=== PATIENT | male | born 1955 | race African-American/Black ===

== ENCOUNTER 2017-10-20 21:30 | Inpatient (IN) ==
[2017-10-20] MEDS ORDERED: METOPROLOL TARTRATE 5 MG/5 ML VIAL IV STA (22:51)
[2017-10-20 23:00] LABS: Basophils % 0.3 % (0.0-0.8); Hematocrit 44.1 VOL% (42.0-52.0); Hemoglobin 14.7 GM/DL (14.0-18.0); Immature Granulocytes % 0.2 %; Immature Granulocytes Absolute 0.02 #; Lymphocytes # 2.3 10*3/uL (1.4-4.0); Mean Corpuscular HGB Conc 33.3 GM/DL (32-36); Mean Corpuscular Hemoglobin 24 PG (27-34); Mean Corpuscular Volume 73.1 FL (87-102); Mean Platelet Volume 10.8 FL (9.6-12.0); Monocytes # 0.8 10*3/uL (0.11-0.8); Monocytes % 7.3 % (1.7-12.7); Neutrophils # 8.4 10*3/uL (1.4-7.4); Neutrophils % 72.2 % (38.7-73.9); Platelet Count 266 T/CUMM (130-400); Red Blood Count 6.03 MC/CUMM (3.8-5.5); Red Cell Distribution Width 19.6 % (9.3-17.3); White Blood Count 11.6 T/CUMM (4-12)
[2017-10-20 23:12] LABS: Albumin 3.3 G/DL (3.4-5.0); Bilirubin,Total 2.5 MG/DL (0.2-1.0); Calcium 9.2 MG/DL (8.5-10.1); Osmolality,Calculated 269.2 MOS/KG (273-304); Total Protein 7.7 G/DL (6.4-8.3)
[2017-10-20 23:31] LABS: VBG Base Excess -3.8 MEQ/L (0-4); VBG HCO3 20.7 MEQ/L (24-28); VBG Oxygen Saturation 69.4 %; VBG PCO2 48.6 MMHG (41-51); VBG PH 7.291; VBG PO2 46.2 MMHG (17-40)
[2017-10-20] MEDS ORDERED: METOPROLOL TARTRATE 5 MG/5 ML VIAL IV ONE (23:59)
[2017-10-21] MEDS ORDERED: FUROSEMIDE 40 MG/4 ML VIAL IV STA (00:19)
[2017-10-21] MEDS ORDERED: NITROGLYCERIN 2% OINT 1 INCH/GM PACK TOP STA (00:19)
[2017-10-21] MEDS ORDERED: ASPIRIN 325 MG TABLET PO STA (00:20)
[2017-10-21] MEDS ORDERED: METOPROLOL TARTRATE 5 MG/5 ML VIAL IV STA (00:22)
[2017-10-21] MEDS ORDERED: METOPROLOL TARTRATE 5 MG/5 ML VIAL IV ONE (00:33)
[2017-10-21] MEDS ORDERED: ASPIRIN 325 MG TABLET ONE (00:33)
[2017-10-21] MEDS ORDERED: NITROGLYCERIN 2% OINT 1 INCH/GM PACK TOP ONE (00:33)
[2017-10-21] MEDS ORDERED: FUROSEMIDE 40 MG/4 ML VIAL ONE (00:33)
[2017-10-21] MEDS ORDERED: DEXTROSE 50% 25 GM/50 ML VIAL IV PRN (02:59)
[2017-10-21] MEDS ORDERED: ONDANSETRON 4 MG/2 ML VIAL IV PRN (02:59)
[2017-10-21] MEDS ORDERED: ACETAMINOPHEN 325 MG TABLET PO PRN (02:59)
[2017-10-21] MEDS ORDERED: GLUCAGON 1 MG VIAL IM PRN (02:59)
[2017-10-21] MEDS ORDERED: ENOXAPARIN 30 MG/0.3 ML SYRINGE SUBCUT SCH (03:00)
[2017-10-21] MEDS ORDERED: ENOXAPARIN 40 MG/0.4 ML SYRINGE ONE (03:22)
[2017-10-21 03:36] LABS: Basophils % 0.3 % (0.0-0.8); Hematocrit 40.3 VOL% (42.0-52.0); Hemoglobin 13.4 GM/DL (14.0-18.0); Immature Granulocytes % 0.4 %; Immature Granulocytes Absolute 0.04 #; Lymphocytes # 1.6 10*3/uL (1.4-4.0); Lymphocytes % 15.5 % (21.2-54.2); Mean Corpuscular HGB Conc 33.3 GM/DL (32-36); Mean Corpuscular Hemoglobin 24 PG (27-34); Mean Corpuscular Volume 72.7 FL (87-102); Mean Platelet Volume 10.4 FL (9.6-12.0); Monocytes % 9.4 % (1.7-12.7); Neutrophils # 7.9 10*3/uL (1.4-7.4); Neutrophils % 74.4 % (38.7-73.9); Platelet Count 239 T/CUMM (130-400); Red Blood Count 5.54 MC/CUMM (3.8-5.5); Red Cell Distribution Width 18.9 % (9.3-17.3); White Blood Count 10.6 T/CUMM (4-12)
[2017-10-21 04:32] LABS: INR 2.7
[2017-10-21 04:41] LABS: PT Patient Result 27.7 SECS
[2017-10-21 05:00] LABS: Calcium 8.8 MG/DL (8.5-10.1); Magnesium 1.5 MG/DL (1.8-2.4); Osmolality,Calculated 267.4 MOS/KG (273-304); Potassium 5.2 MMOL/L (3.5-5.1); Risk Ratio 2.69; Thyroid Stimulating Hormone 3.81 uIU/ml (0.358-3.74); VLDL CHOLESTEROL 13.2 MG/DL
[2017-10-21] MEDS ORDERED: MAGNESIUM SULFATE 1 GM/2 ML VIAL IM ONE (05:07)
[2017-10-21] MEDS ORDERED: PANTOPRAZOLE 40 MG TABLET PO ONE (08:53)
[2017-10-21] MEDS ORDERED: FUROSEMIDE 40 MG TABLET ONE (08:53)
[2017-10-21] MEDS ORDERED: WARFARIN 5 MG TABLET ONE (08:53)
[2017-10-21] MEDS: PANTOPRAZOLE 40 MG TABLET PO SCH (09:00)
[2017-10-21] MEDS: ATORVASTATIN 40 MG TABLET PO SCH (09:00)
[2017-10-21] MEDS ORDERED: WARFARIN 10 MG TABLET PO SCH (09:00)
[2017-10-21] MEDS ORDERED: INSULIN ASPART PROTAMINE/ASPART 70/30 100 UNIT/ML SUBCUT ONE (09:27)
[2017-10-21] MEDS: METOPROLOL SUCCINATE XL 50 MG TABLET PO SCH (09:29)
[2017-10-21] MEDS ORDERED: FUROSEMIDE 40 MG TABLET PO ONE (09:33)
[2017-10-21] MEDS: FUROSEMIDE 40 MG/4 ML VIAL IV SCH ×2 (09:33→16:27)
[2017-10-21] MEDS: INSULIN ASPART PROTAMINE/ASPART 70/30 100 UNIT/ML SUBCUT SCH ×2 (09:40→17:09)
[2017-10-21] MEDS: INSULIN LISPRO 100 UNIT/ML SUBCUT SCH ×2 (13:41→16:42)
[2017-10-21] MEDS: FAMOTIDINE 20 MG TABLET PO SCH (20:56)
[2017-10-22] MEDS: INSULIN LISPRO 100 UNIT/ML SUBCUT SCH ×5 (00:27→20:03)
[2017-10-22 04:55] LABS: Basophils % 0.1 % (0.0-0.8); Eosinophils % 0.1 % (0.00-10.9); Hematocrit 36.2 VOL% (42.0-52.0); Hemoglobin 12.2 GM/DL (14.0-18.0); Immature Granulocytes % 0.2 %; Immature Granulocytes Absolute 0.02 #; Lymphocytes # 2.1 10*3/uL (1.4-4.0); Lymphocytes % 24.7 % (21.2-54.2); Mean Corpuscular HGB Conc 33.7 GM/DL (32-36); Mean Corpuscular Hemoglobin 24 PG (27-34); Mean Platelet Volume 10.2 FL (9.6-12.0); Monocytes # 0.6 10*3/uL (0.11-0.8); Neutrophils # 5.6 10*3/uL (1.4-7.4); Neutrophils % 67.9 % (38.7-73.9); Platelet Count 214 T/CUMM (130-400); Red Cell Distribution Width 18.2 % (9.3-17.3); White Blood Count 8.3 T/CUMM (4-12)
[2017-10-22 05:31] LABS: Calcium 8.5 MG/DL (8.5-10.1); Magnesium 1.8 MG/DL (1.8-2.4); Osmolality,Calculated 271.1 MOS/KG (273-304); Potassium 3.7 MMOL/L (3.5-5.1)
[2017-10-22] MEDS: INSULIN ASPART PROTAMINE/ASPART 70/30 100 UNIT/ML SUBCUT SCH ×2 (08:43→16:27)
[2017-10-22] MEDS: FUROSEMIDE 40 MG/4 ML VIAL IV SCH ×2 (08:43→16:26)
[2017-10-22] MEDS: METOPROLOL SUCCINATE XL 50 MG TABLET PO SCH ×2 (08:44→21:42)
[2017-10-22] MEDS: PANTOPRAZOLE 40 MG TABLET PO SCH (08:44)
[2017-10-22] MEDS: ATORVASTATIN 40 MG TABLET PO SCH (08:44)
[2017-10-22] MEDS ORDERED: MEPERIDINE 50 MG/1 ML VIAL IV ONE ×2 (16:55→17:00)
[2017-10-22] MEDS ORDERED: MIDAZOLAM 10 MG/2 ML VIAL IV ONE (16:57)
[2017-10-22] MEDS ORDERED: NALOXONE 0.4 MG/ML VIAL ONE (17:40)
[2017-10-22] MEDS ORDERED: FLUMAZENIL 0.5 MG/5 ML VIAL IV ONE (17:43)
[2017-10-22] MEDS ORDERED: WARFARIN 5 MG TABLET ONE (20:34)
[2017-10-22] MEDS: WARFARIN 10 MG TABLET PO SCH (21:42)
[2017-10-22] MEDS: FAMOTIDINE 20 MG TABLET PO SCH (21:42)
[2017-10-23 04:33] LABS: Basophils % 0.1 % (0.0-0.8); Eosinophils % 0.3 % (0.00-10.9); Hematocrit 36.5 VOL% (42.0-52.0); Hemoglobin 12.3 GM/DL (14.0-18.0); Immature Granulocytes % 0.3 %; Immature Granulocytes Absolute 0.02 #; Lymphocytes # 1.5 10*3/uL (1.4-4.0); Lymphocytes % 21.3 % (21.2-54.2); Mean Corpuscular HGB Conc 33.7 GM/DL (32-36); Mean Corpuscular Hemoglobin 25 PG (27-34); Mean Corpuscular Volume 72.7 FL (87-102); Mean Platelet Volume 10.8 FL (9.6-12.0); Monocytes # 0.6 10*3/uL (0.11-0.8); Monocytes % 8.5 % (1.7-12.7); Neutrophils # 4.9 10*3/uL (1.4-7.4); Neutrophils % 69.5 % (38.7-73.9); Platelet Count 233 T/CUMM (130-400); Red Blood Count 5.02 MC/CUMM (3.8-5.5); Red Cell Distribution Width 18.1 % (9.3-17.3); White Blood Count 7.1 T/CUMM (4-12)
[2017-10-23 04:50] LABS: INR 4.4
[2017-10-23 04:51] LABS: PT Patient Result 44.2 SECS
[2017-10-23 05:37] LABS: Calcium 7.9 MG/DL (8.5-10.1); Magnesium 1.6 MG/DL (1.8-2.4); Osmolality,Calculated 270.4 MOS/KG (273-304); Potassium 3.9 MMOL/L (3.5-5.1)
[2017-10-23] MEDS: INSULIN LISPRO 100 UNIT/ML SUBCUT SCH ×4 (08:51→20:11)
[2017-10-23] MEDS: PANTOPRAZOLE 40 MG TABLET PO SCH (08:52)
[2017-10-23] MEDS: METOPROLOL SUCCINATE XL 50 MG TABLET PO SCH ×2 (08:52→21:20)
[2017-10-23] MEDS: ATORVASTATIN 40 MG TABLET PO SCH (08:52)
[2017-10-23] MEDS: FUROSEMIDE 40 MG/4 ML VIAL IV SCH ×2 (08:52→15:31)
[2017-10-23] MEDS: INSULIN ASPART PROTAMINE/ASPART 70/30 100 UNIT/ML SUBCUT SCH ×2 (08:52→15:31)
[2017-10-23] MEDS ORDERED: ALBUTEROL 0.63 MG/3 ML NEB RESP TX PRN (10:13)
[2017-10-23] MEDS: LISINOPRIL 5 MG TABLET PO SCH ×2 (11:58→21:19)
[2017-10-23] MEDS ORDERED: WARFARIN 5 MG TABLET ONE (16:12)
[2017-10-23] MEDS: WARFARIN 10 MG TABLET PO SCH (17:00)
[2017-10-23] MEDS ORDERED: FLUMAZENIL 1 MG/10 ML VIAL IV ONE (19:01)
[2017-10-23] MEDS ORDERED: NALOXONE 0.4 MG/ML VIAL IV ONE (19:01)
[2017-10-23] MEDS ORDERED: FLUMAZENIL 0.5 MG/5 ML VIAL IV ONE (19:30)
[2017-10-23] MEDS: FAMOTIDINE 20 MG TABLET PO SCH (21:19)
[2017-10-24 06:00] LABS: Basophils % 0.4 % (0.0-0.8); Eosinophils # 0.1 10*3/uL (0.0-0.87); Eosinophils % 0.9 % (0.00-10.9); Hematocrit 35.2 VOL% (42.0-52.0); Lymphocytes % 34.7 % (21.2-54.2); Mean Corpuscular HGB Conc 34.1 GM/DL (32-36); Mean Corpuscular Hemoglobin 24 PG (27-34); Mean Corpuscular Volume 70.8 FL (87-102); Mean Platelet Volume 10.6 FL (9.6-12.0); Monocytes # 0.6 10*3/uL (0.11-0.8); Monocytes % 10.3 % (1.7-12.7); Neutrophils % 53.7 % (38.7-73.9); Platelet Count 240 T/CUMM (130-400); Red Blood Count 4.97 MC/CUMM (3.8-5.5); Red Cell Distribution Width 17.9 % (9.3-17.3); White Blood Count 5.6 T/CUMM (4-12)
[2017-10-24 06:14] LABS: PT Patient Result 63.1 SECS
[2017-10-24 06:15] LABS: INR 6.4
[2017-10-24 06:31] LABS: Calcium 8.1 MG/DL (8.5-10.1); Magnesium 1.8 MG/DL (1.8-2.4); Osmolality,Calculated 271.1 MOS/KG (273-304); Potassium 3.5 MMOL/L (3.5-5.1)
[2017-10-24] MEDS: INSULIN LISPRO 100 UNIT/ML SUBCUT SCH ×4 (09:00→20:57)
[2017-10-24] MEDS: METOPROLOL SUCCINATE XL 50 MG TABLET PO SCH ×2 (09:00→20:57)
[2017-10-24] MEDS: INSULIN ASPART PROTAMINE/ASPART 70/30 100 UNIT/ML SUBCUT SCH ×2 (09:00→17:06)
[2017-10-24] MEDS: LISINOPRIL 5 MG TABLET PO SCH ×2 (09:00→20:56)
[2017-10-24] MEDS: ATORVASTATIN 40 MG TABLET PO SCH (09:00)
[2017-10-24] MEDS: PANTOPRAZOLE 40 MG TABLET PO SCH (09:01)
[2017-10-24] MEDS: FUROSEMIDE 40 MG/4 ML VIAL IV SCH ×2 (09:01→17:19)
[2017-10-24] MEDS: FAMOTIDINE 20 MG TABLET PO SCH (20:36)
[2017-10-25 05:46] LABS: Basophils % 0.5 % (0.0-0.8); Eosinophils # 0.1 10*3/uL (0.0-0.87); Eosinophils % 1.1 % (0.00-10.9); Hematocrit 36.1 VOL% (42.0-52.0); Hemoglobin 12.2 GM/DL (14.0-18.0); Immature Granulocytes % 0.2 %; Immature Granulocytes Absolute 0.01 #; Lymphocytes # 1.5 10*3/uL (1.4-4.0); Lymphocytes % 26.5 % (21.2-54.2); Mean Corpuscular HGB Conc 33.8 GM/DL (32-36); Mean Corpuscular Hemoglobin 24 PG (27-34); Mean Corpuscular Volume 71.8 FL (87-102); Mean Platelet Volume 10.6 FL (9.6-12.0); Monocytes # 0.5 10*3/uL (0.11-0.8); Monocytes % 8.7 % (1.7-12.7); Neutrophils # 3.5 10*3/uL (1.4-7.4); Platelet Count 275 T/CUMM (130-400); Red Blood Count 5.03 MC/CUMM (3.8-5.5); Red Cell Distribution Width 18.3 % (9.3-17.3); White Blood Count 5.6 T/CUMM (4-12)
[2017-10-25 06:05] LABS: PT Patient Result 58.5 SECS
[2017-10-25 06:06] LABS: INR 5.9
[2017-10-25 07:08] LABS: Calcium 8.3 MG/DL (8.5-10.1); Magnesium 1.8 MG/DL (1.8-2.4); Osmolality,Calculated 277.1 MOS/KG (273-304)
[2017-10-25] MEDS: INSULIN LISPRO 100 UNIT/ML SUBCUT SCH ×4 (08:43→20:28)
[2017-10-25] MEDS: LISINOPRIL 5 MG TABLET PO SCH ×2 (08:43→20:29)
[2017-10-25] MEDS: METOPROLOL SUCCINATE XL 50 MG TABLET PO SCH ×2 (08:44→20:29)
[2017-10-25] MEDS: FUROSEMIDE 40 MG/4 ML VIAL IV SCH ×2 (08:44→16:26)
[2017-10-25] MEDS: ATORVASTATIN 40 MG TABLET PO SCH (08:44)
[2017-10-25] MEDS: PANTOPRAZOLE 40 MG TABLET PO SCH (08:44)
[2017-10-25] MEDS: INSULIN ASPART PROTAMINE/ASPART 70/30 100 UNIT/ML SUBCUT SCH (16:36)
[2017-10-25] MEDS: FAMOTIDINE 20 MG TABLET PO SCH (20:29)
[2017-10-26 03:57] LABS: Basophils % 0.3 % (0.0-0.8); Eosinophils # 0.1 10*3/uL (0.0-0.87); Eosinophils % 1.6 % (0.00-10.9); Hematocrit 37.2 VOL% (42.0-52.0); Hemoglobin 12.3 GM/DL (14.0-18.0); Lymphocytes # 1.7 10*3/uL (1.4-4.0); Lymphocytes % 27.6 % (21.2-54.2); Mean Corpuscular HGB Conc 33.1 GM/DL (32-36); Mean Corpuscular Hemoglobin 24 PG (27-34); Mean Corpuscular Volume 72.7 FL (87-102); Mean Platelet Volume 10.4 FL (9.6-12.0); Monocytes # 0.7 10*3/uL (0.11-0.8); Monocytes % 10.5 % (1.7-12.7); Neutrophils # 3.7 10*3/uL (1.4-7.4); Platelet Count 292 T/CUMM (130-400); Red Blood Count 5.12 MC/CUMM (3.8-5.5); Red Cell Distribution Width 18.7 % (9.3-17.3); White Blood Count 6.2 T/CUMM (4-12)
[2017-10-26 04:30] LABS: Calcium 8.2 MG/DL (8.5-10.1); Osmolality,Calculated 275.8 MOS/KG (273-304); Potassium 3.7 MMOL/L (3.5-5.1)
[2017-10-26 04:56] LABS: INR 4.6
[2017-10-26 05:24] LABS: PT Patient Result 46.1 SECS
[2017-10-26] MEDS: INSULIN LISPRO 100 UNIT/ML SUBCUT SCH ×4 (08:05→21:16)
[2017-10-26] MEDS: PANTOPRAZOLE 40 MG TABLET PO SCH (08:18)
[2017-10-26] MEDS: FUROSEMIDE 40 MG/4 ML VIAL IV SCH (08:18)
[2017-10-26] MEDS: ATORVASTATIN 40 MG TABLET PO SCH (08:18)
[2017-10-26] MEDS: METOPROLOL SUCCINATE XL 50 MG TABLET PO SCH ×2 (08:18→21:12)
[2017-10-26] MEDS: LISINOPRIL 5 MG TABLET PO SCH ×2 (08:18→21:12)
[2017-10-26] MEDS: FUROSEMIDE 40 MG TABLET PO SCH (16:52)
[2017-10-26] MEDS: INSULIN ASPART PROTAMINE/ASPART 70/30 100 UNIT/ML SUBCUT SCH (16:57)
[2017-10-26] MEDS: FAMOTIDINE 20 MG TABLET PO SCH (21:12)
[2017-10-27 05:23] LABS: Basophils % 0.3 % (0.0-0.8); Eosinophils # 0.2 10*3/uL (0.0-0.87); Eosinophils % 2.8 % (0.00-10.9); Hematocrit 38.1 VOL% (42.0-52.0); Hemoglobin 12.6 GM/DL (14.0-18.0); Immature Granulocytes % 0.2 %; Immature Granulocytes Absolute 0.01 #; Lymphocytes % 32.3 % (21.2-54.2); Mean Corpuscular HGB Conc 33.1 GM/DL (32-36); Mean Corpuscular Hemoglobin 24 PG (27-34); Mean Corpuscular Volume 71.9 FL (87-102); Monocytes # 0.5 10*3/uL (0.11-0.8); Monocytes % 8.3 % (1.7-12.7); Neutrophils # 3.5 10*3/uL (1.4-7.4); Neutrophils % 56.1 % (38.7-73.9); Platelet Count 336 T/CUMM (130-400); Red Cell Distribution Width 19.4 % (9.3-17.3); White Blood Count 6.2 T/CUMM (4-12)
[2017-10-27 05:31] LABS: INR 2.7
[2017-10-27 05:49] LABS: PT Patient Result 27.4 SECS
[2017-10-27 05:56] LABS: Calcium 8.4 MG/DL (8.5-10.1); Osmolality,Calculated 274.7 MOS/KG (273-304); Potassium 3.8 MMOL/L (3.5-5.1)
[2017-10-27] MEDS: INSULIN LISPRO 100 UNIT/ML SUBCUT SCH ×2 (08:37→14:56)
[2017-10-27] MEDS: PANTOPRAZOLE 40 MG TABLET PO SCH (09:07)
[2017-10-27] MEDS: FUROSEMIDE 40 MG TABLET PO SCH (09:07)
[2017-10-27] MEDS: METOPROLOL SUCCINATE XL 50 MG TABLET PO SCH (09:07)
[2017-10-27] MEDS: LISINOPRIL 5 MG TABLET PO SCH (09:07)
[2017-10-27] MEDS: ATORVASTATIN 40 MG TABLET PO SCH (09:08)
[2017-10-27 13:13] VITALS: BP 112/82
== END 2017-10-27 15:21 | disposition home or self-care (01) | DRG 309 ==
LOC: N.ED 21:30 → SUATTDRO 10-21 02:58 → N.EDINP 10-21 02:58 → N.TELEN 10-21 13:12
PROVIDERS: ADMIT Internal Medicine; ATTEND Internal Medicine

== ENCOUNTER 2020-12-01 17:31 | Inpatient (IN) ==
[2020-12-01] MEDS ORDERED: ONDANSETRON 4 MG/2 ML VIAL IV ONE (20:34)
[2020-12-01] MEDS ORDERED: ASPIRIN 325 MG TABLET PO STA (20:34)
[2020-12-01 21:00] LABS: Basophils % 0.2 % (0.0-0.8); Eosinophils # 0.1 10*3/uL (0.0-0.87); Hematocrit 42.9 VOL% (42.0-52.0); Hemoglobin 13.3 GM/DL (14.0-18.0); Immature Granulocytes % 0.5 %; Immature Granulocytes Absolute 0.06 #; Lymphocytes # 1.2 10*3/uL (1.4-4.0); Lymphocytes % 10.7 % (21.2-54.2); Mean Corpuscular Volume 84.3 FL (87-102); Mean Platelet Volume 10.9 FL (9.6-12.0); Monocytes % 10.5 % (1.7-12.7); Neutrophils % 77.1 % (38.7-73.9); Platelet Count 326 T/CUMM (130-400); Red Blood Count 5.09 MC/CUMM (3.8-5.5); Red Cell Distribution Width 16.2 % (9.3-17.3); White Blood Count 11.1 T/CUMM (4-12)
[2020-12-01] MEDS ORDERED: INSULIN REGULAR 100 UNIT/ML IV STA (21:18)
[2020-12-01 21:20] LABS: Eosinophils 1 % (0-10); Lymphocytes 11 % (20-55); Platelet Estimate Adequate; Segmented Neutrophils 74 % (50-85); Total Cells Counted 100
[2020-12-01 21:20] LABS: INR 1.1; PT Patient Result 12.1 SECS (9.8-11.9)
[2020-12-01 21:21] LABS: Anisocytosis Slight; Polychromasia Few
[2020-12-01 21:31] LABS: Bilirubin,Urine Negative (Negative); Blood, Urine Small mg/dL (Negative); Glucose,Urine (UA) >=500 mg/dL (Negative); Ketones,Urine Negative (Negative); Nitrite,Urine Negative (Negative); Protein,Urine 100 MG/DL; RBC,Urine 2 /HPF (0-4); Squamous Epithelial Cell,Urine Occasional /HPF (0-10); Urine Appearance CLEAR (Clear); Urine Color Yellow (Yellow); Urine Specific Gravity 1.018 (1.001-1.035); WBC,Urine 1 /HPF (0-6)
[2020-12-01 21:34] LABS: Albumin 3.2 G/DL (3.4-5.0); Bilirubin,Total 1.3 MG/DL (0.2-1.0); Total Protein 8.7 G/DL (6.4-8.3)
[2020-12-01 21:35] LABS: Troponin I < 0.015 NG/ML (0.00-0.045)
[2020-12-01] MEDS ORDERED: LABETALOL 20 MG/4 ML SYRINGE IV STA (21:52)
[2020-12-01] MEDS ORDERED: ZALEPLON 5 MG CAPSULE PO PRN (22:15)
[2020-12-01] MEDS ORDERED: GLUCAGON 1 MG VIAL IM PRN ×2 (22:15)
[2020-12-01] MEDS ORDERED: DEXTROSE 50% 25 GM/50 ML VIAL IV PRN ×2 (22:15)
[2020-12-01] MEDS ORDERED: MAGNESIUM SULF RIDER 2 GM in PREMIX 1 EACH IV PRN (22:15)
[2020-12-01] MEDS ORDERED: MAGNESIUM SULF RIDER 4 GM in PREMIX 1 EACH IV PRN (22:15)
[2020-12-01] MEDS ORDERED: ACETAMINOPHEN 325 MG TABLET PO PRN (22:15)
[2020-12-01] MEDS ORDERED: DOCUSATE SODIUM 100 MG CAPSULE PO PRN (22:15)
[2020-12-01] MEDS ORDERED: ONDANSETRON 4 MG/2 ML VIAL IV PRN (22:15)
[2020-12-01] MEDS ORDERED: DEXTROSE 50% 25 GM/50 ML SYRINGE IV PRN (22:35)
[2020-12-02] MEDS: METOPROLOL SUCCINATE XL 25 MG TABLET PO SCH ×3 (02:18→21:48)
[2020-12-02] MEDS: AMIODARONE 200 MG TABLET PO SCH ×3 (02:18→21:48)
[2020-12-02] MEDS: carvediloL 12.5 MG TABLET PO SCH ×2 (02:18→07:48)
[2020-12-02 07:14] LABS: Basophils % 0.2 % (0.0-0.8); Eosinophils # 0.1 10*3/uL (0.0-0.87); Eosinophils % 0.9 % (0.00-10.9); Hematocrit 34.4 VOL% (42.0-52.0); Hemoglobin 10.7 GM/DL (14.0-18.0); Immature Granulocytes % 0.3 %; Immature Granulocytes Absolute 0.03 #; Lymphocytes # 1.2 10*3/uL (1.4-4.0); Lymphocytes % 11.8 % (21.2-54.2); Mean Corpuscular HGB Conc 31.1 GM/DL (32-36); Mean Corpuscular Volume 83.9 FL (87-102); Mean Platelet Volume 11.1 FL (9.6-12.0); Monocytes % 10.4 % (1.7-12.7); Neutrophils % 76.4 % (38.7-73.9); Platelet Count 298 T/CUMM (130-400); Red Cell Distribution Width 16.1 % (9.3-17.3); White Blood Count 10.3 T/CUMM (4-12)
[2020-12-02 07:30] LABS: Alanine Aminotransferase 17 U/L (16-61); Albumin 2.4 G/DL (3.4-5.0); Alkaline Phosphatase 89 U/L (45-117); Aspartate Amino Transferase 14 U/L (0-37); Blood Urea Nitrogen 15 MG/DL (7-18); Calcium 8.2 MG/DL (8.5-10.1); Estimated Glom Filtration Rate 83 ML/MIN; Glucose 336 MG/DL (74-106); Osmolality,Calculated 286.8 MOS/KG (273-304); Total Protein 7.1 G/DL (6.4-8.3); Troponin I < 0.015 NG/ML (0.00-0.045)
[2020-12-02] MEDS: INSULIN REGULAR 100 UNIT/ML SUBCUT SCH ×4 (07:49→21:49)
[2020-12-02] MEDS: FUROSEMIDE 40 MG/4 ML VIAL IV SCH ×2 (07:49→15:46)
[2020-12-02 08:20] LABS: Troponin I < 0.015 NG/ML (0.00-0.045)
[2020-12-02] MEDS: lisinopriL 20 MG TABLET PO SCH (08:27)
[2020-12-02] MEDS: MAGNESIUM CHLORIDE 64 MG TABLET PO SCH ×3 (08:27→21:48)
[2020-12-02] MEDS: metOLazone 2.5 MG TABLET PO SCH (08:27)
[2020-12-02] MEDS: PANTOPRAZOLE 40 MG TABLET PO SCH (08:27)
[2020-12-02] MEDS ORDERED: APIXABAN 5 MG TABLET PO SCH (09:00)
[2020-12-02 09:12] LABS: Troponin I < 0.015 NG/ML (0.00-0.045)
[2020-12-02] MEDS: SACUBITRIL/VALSARTAN 49-51 MG TABLET PO SCH ×2 (12:09→21:48)
[2020-12-02] MEDS: ATORVASTATIN 40 MG TABLET PO SCH (18:08)
[2020-12-02] MEDS: APIXABAN 5 MG TABLET PO SCH (21:48)
[2020-12-03 06:50] LABS: Basophils % 0.3 % (0.0-0.8); Eosinophils # 0.1 10*3/uL (0.0-0.87); Eosinophils % 1.2 % (0.00-10.9); Hematocrit 34.1 VOL% (42.0-52.0); Hemoglobin 10.5 GM/DL (14.0-18.0); Immature Granulocytes % 0.4 %; Immature Granulocytes Absolute 0.04 #; Lymphocytes # 1.6 10*3/uL (1.4-4.0); Lymphocytes % 17.5 % (21.2-54.2); Mean Corpuscular HGB Conc 30.8 GM/DL (32-36); Mean Corpuscular Volume 83.4 FL (87-102); Mean Platelet Volume 10.7 FL (9.6-12.0); Monocytes % 11.7 % (1.7-12.7); Neutrophils % 68.9 % (38.7-73.9); Platelet Count 279 T/CUMM (130-400); Red Blood Count 4.09 MC/CUMM (3.8-5.5); Red Cell Distribution Width 15.8 % (9.3-17.3); White Blood Count 9.2 T/CUMM (4-12)
[2020-12-03 06:57] LABS: Calcium 8.1 MG/DL (8.5-10.1); Osmolality,Calculated 271.2 MOS/KG (273-304)
[2020-12-03] MEDS: SACUBITRIL/VALSARTAN 49-51 MG TABLET PO SCH ×2 (08:29→22:00)
[2020-12-03] MEDS: INSULIN REGULAR 100 UNIT/ML SUBCUT SCH ×4 (08:29→22:01)
[2020-12-03] MEDS: metOLazone 2.5 MG TABLET PO SCH (08:30)
[2020-12-03] MEDS: AMIODARONE 200 MG TABLET PO SCH ×2 (08:30→21:59)
[2020-12-03] MEDS: lisinopriL 20 MG TABLET PO SCH (08:30)
[2020-12-03] MEDS: METOPROLOL SUCCINATE XL 25 MG TABLET PO SCH ×2 (08:30→22:00)
[2020-12-03] MEDS: PANTOPRAZOLE 40 MG TABLET PO SCH (08:30)
[2020-12-03] MEDS: MAGNESIUM CHLORIDE 64 MG TABLET PO SCH ×3 (08:30→22:00)
[2020-12-03] MEDS: FUROSEMIDE 40 MG/4 ML VIAL IV SCH ×2 (08:30→17:34)
[2020-12-03] MEDS: APIXABAN 5 MG TABLET PO SCH ×2 (08:30→22:00)
[2020-12-03] MEDS: POTASSIUM CHLORIDE 20 MEQ TABLET PO PRN ×4 (10:03→17:33)
[2020-12-03] MEDS: ATORVASTATIN 40 MG TABLET PO SCH (18:04)
[2020-12-04] MEDS: POTASSIUM CHLORIDE 20 MEQ TABLET PO PRN ×4 (00:20→08:02)
[2020-12-04 05:24] LABS: Basophils % 0.2 % (0.0-0.8); Eosinophils # 0.2 10*3/uL (0.0-0.87); Eosinophils % 2.5 % (0.00-10.9); Hematocrit 34.3 VOL% (42.0-52.0); Hemoglobin 10.9 GM/DL (14.0-18.0); Immature Granulocytes % 0.2 %; Immature Granulocytes Absolute 0.02 #; Lymphocytes # 1.5 10*3/uL (1.4-4.0); Lymphocytes % 18.1 % (21.2-54.2); Mean Corpuscular HGB Conc 31.8 GM/DL (32-36); Mean Corpuscular Volume 83.7 FL (87-102); Mean Platelet Volume 10.6 FL (9.6-12.0); Monocytes % 10.1 % (1.7-12.7); Neutrophils % 68.9 % (38.7-73.9); Platelet Count 313 T/CUMM (130-400); Red Cell Distribution Width 15.6 % (9.3-17.3); White Blood Count 8.4 T/CUMM (4-12)
[2020-12-04 05:44] LABS: Calcium 8.1 MG/DL (8.5-10.1); Osmolality,Calculated 277.4 MOS/KG (273-304)
[2020-12-04] MEDS: metOLazone 2.5 MG TABLET PO SCH (08:02)
[2020-12-04] MEDS: INSULIN REGULAR 100 UNIT/ML SUBCUT SCH ×3 (08:07→18:34)
[2020-12-04] MEDS: lisinopriL 20 MG TABLET PO SCH (09:26)
[2020-12-04] MEDS: MAGNESIUM CHLORIDE 64 MG TABLET PO SCH ×2 (09:26→15:28)
[2020-12-04] MEDS: AMIODARONE 200 MG TABLET PO SCH (09:26)
[2020-12-04] MEDS: PANTOPRAZOLE 40 MG TABLET PO SCH (09:26)
[2020-12-04] MEDS: SACUBITRIL/VALSARTAN 49-51 MG TABLET PO SCH (09:26)
[2020-12-04] MEDS: METOPROLOL SUCCINATE XL 25 MG TABLET PO SCH (09:26)
[2020-12-04] MEDS: FUROSEMIDE 40 MG/4 ML VIAL IV SCH (09:27)
[2020-12-04] MEDS: APIXABAN 5 MG TABLET PO SCH (09:27)
[2020-12-04] MEDS ORDERED: POTASSIUM CHLORIDE 20 MEQ TABLET PO SCH (09:44)
[2020-12-04] MEDS ORDERED: GLIMEPIRIDE 2 MG TABLET PO SCH (10:00)
[2020-12-04] MEDS ORDERED: ASPIRIN CHEW 81 MG TABLET PO SCH (10:30)
[2020-12-04] MEDS ORDERED: MAGNESIUM SULF RIDER 2 GM in PREMIX 1 EACH IV ONE (10:58)
[2020-12-04] MEDS ORDERED: INFLUENZA VIRUS VACCINE 0.5 ML SYRINGE IM ONE (14:17)
[2020-12-04] MEDS ORDERED: FUROSEMIDE 40 MG TABLET PO SCH (16:00)
[2020-12-04 16:08] VITALS: BP 121/76
== END 2020-12-04 20:16 | disposition home or self-care (01) | DRG 291 ==
LOC: N.EDINP 17:31 → N.ED 17:31 → SUATTDRO 22:39 → N.EDINP 12-02 01:09 → N.TELEN 12-02 01:30 → SUATTDRO 12-03 13:22
PROVIDERS: ADMIT Family Medicine; ATTEND Internal Medicine

== ENCOUNTER 2021-04-24 16:21 | Observation (INO) ==
[2021-04-24] MEDS ORDERED: methylPREDNISolone SOD SUC 125 MG/2 ML VIAL IV STA (18:20)
[2021-04-24] MEDS ORDERED: ONDANSETRON 4 MG/2 ML VIAL IV STA (18:20)
[2021-04-24] MEDS ORDERED: FUROSEMIDE 100 MG/10 ML VIAL IV STA (18:20)
[2021-04-24] MEDS ORDERED: ALBUTEROL/IPRATROPIUM 3 ML NEB RESP TX STA (18:20)
[2021-04-24] MEDS ORDERED: MORPHINE 4 MG/1 ML VIAL IV STA (18:20)
[2021-04-24] MEDS ORDERED: ASPIRIN 325 MG TABLET PO STA (18:20)
[2021-04-24 18:35] LABS: Basophils % 0.5 % (0.0-0.8); Eosinophils # 1.1 10*3/uL (0.0-0.87); Eosinophils % 17.4 % (0.00-10.9); Hematocrit 35.9 VOL% (42.0-52.0); Hemoglobin 11.1 GM/DL (14.0-18.0); Immature Granulocytes % 0.2 %; Immature Granulocytes Absolute 0.01 #; Lymphocytes # 1.3 10*3/uL (1.4-4.0); Lymphocytes % 19.9 % (21.2-54.2); Mean Corpuscular HGB Conc 30.9 GM/DL (32-36); Mean Corpuscular Volume 87.8 FL (87-102); Mean Platelet Volume 11.4 FL (9.6-12.0); Monocytes % 9.5 % (1.7-12.7); Neutrophils % 52.5 % (38.7-73.9); Platelet Count 232 T/CUMM (130-400); Red Blood Count 4.09 MC/CUMM (3.8-5.5); Red Cell Distribution Width 17.1 % (9.3-17.3); White Blood Count 6.4 T/CUMM (4-12)
[2021-04-24 18:41] LABS: INR 1.2; PT Patient Result 12.7 SECS (10.5-12.0)
[2021-04-24 18:45] LABS: Albumin 3.1 G/DL (3.4-5.0); Bilirubin,Total 0.9 MG/DL (0.2-1.0); Calcium 8.1 MG/DL (8.5-10.1); Osmolality,Calculated 279.5 MOS/KG (273-304); Potassium 3.7 MMOL/L (3.5-5.1); Total Protein 7.7 G/DL (6.4-8.2)
[2021-04-24 19:44] LABS: Anisocytosis 1+; Eosinophils 17 % (0-10); Hypochromasia 1+; Lymphocytes 19 % (20-55); Ovalocytes 1+; Segmented Neutrophils 55 % (50-85); Total Cells Counted 100
[2021-04-24 19:45] LABS: Platelet Estimate Normal; Schistocytes Few
[2021-04-24] MEDS ORDERED: GLUCAGON 1 MG VIAL IM PRN (20:41)
[2021-04-24] MEDS ORDERED: DEXTROSE 50% 25 GM/50 ML VIAL IV PRN (20:41)
[2021-04-24] MEDS ORDERED: ALBUTEROL/IPRATROPIUM 3 ML NEB RESP TX PRN (20:42)
[2021-04-24] MEDS ORDERED: ENOXAPARIN 40 MG/0.4 ML SYRINGE SUBCUT SCH (21:00)
[2021-04-24 21:26] LABS: Bilirubin,Urine Negative (Negative); Blood, Urine Small mg/dL (Negative); Glucose,Urine (UA) Negative (Negative); Hyaline Casts,Urine 1 /LPF (0-3); Ketones,Urine Negative (Negative); Mucus,Urine Occasional /LPF (Occasional); Nitrite,Urine Negative (Negative); Protein,Urine 30 MG/DL; RBC,Urine 1 /HPF (0-4); Urine Appearance CLEAR (Clear); Urine Color Straw (Yellow); Urine Specific Gravity 1.006 (1.001-1.035); Urine Urobilinogen < 2.0 EU/DL (0.2-1.0)
[2021-04-24 21:48] LABS: Barbiturates Screen,Urine Negative (Negative); Benzodiazepines Screen,Urine Negative (Negative); Cannabinoid Screen,Urine Negative (Negative); Opiate Screen,Urine Positive (Negative); Phencyclidine Screen,Urine Negative (Negative)
[2021-04-24] MEDS: APIXABAN 5 MG TABLET PO SCH (23:35)
[2021-04-24] MEDS: carvediloL 6.25 MG TABLET PO SCH (23:35)
[2021-04-24] MEDS: ATORVASTATIN 40 MG TABLET PO SCH (23:36)
[2021-04-24] MEDS: INSULIN LISPRO 100 UNIT/ML SUBCUT SCH (23:36)
[2021-04-25 07:06] LABS: Calcium 8.1 MG/DL (8.5-10.1); Osmolality,Calculated 285.1 MOS/KG (273-304); Potassium 3.8 MMOL/L (3.5-5.1)
[2021-04-25] MEDS: ASPIRIN CHEW 81 MG TABLET PO SCH (08:39)
[2021-04-25] MEDS: INSULIN LISPRO 100 UNIT/ML SUBCUT SCH ×4 (08:39→20:04)
[2021-04-25] MEDS: carvediloL 6.25 MG TABLET PO SCH ×2 (08:39→20:43)
[2021-04-25] MEDS: FUROSEMIDE 40 MG/4 ML VIAL IV SCH ×2 (08:39→16:50)
[2021-04-25] MEDS: APIXABAN 5 MG TABLET PO SCH ×2 (08:39→20:43)
[2021-04-25] MEDS: metOLazone 2.5 MG TABLET PO SCH (09:33)
[2021-04-25] MEDS: MAGNESIUM CHLORIDE 64 MG TABLET PO SCH (09:33)
[2021-04-25] MEDS: POTASSIUM CHLORIDE 20 MEQ TABLET PO SCH ×2 (09:33→20:43)
[2021-04-25] MEDS: INSULIN NPH/REGULAR 70/30 100 UNIT/ML SUBCUT SCH (09:33)
[2021-04-25] MEDS: AMIODARONE 200 MG TABLET PO SCH ×2 (09:33→20:43)
[2021-04-25] MEDS: SACUBITRIL/VALSARTAN 49-51 MG TABLET PO SCH (09:33)
[2021-04-25] MEDS ORDERED: INSULIN NPH/REGULAR 70/30 100 UNIT/ML SUBCUT SCH (16:30)
[2021-04-25] MEDS: ATORVASTATIN 40 MG TABLET PO SCH (20:43)
[2021-04-26 07:15] LABS: Calcium 8.4 MG/DL (8.5-10.1); Osmolality,Calculated 276.7 MOS/KG (273-304); Potassium 3.4 MMOL/L (3.5-5.1)
[2021-04-26] MEDS: SACUBITRIL/VALSARTAN 49-51 MG TABLET PO SCH (08:29)
[2021-04-26] MEDS: MAGNESIUM CHLORIDE 64 MG TABLET PO SCH (08:29)
[2021-04-26] MEDS: APIXABAN 5 MG TABLET PO SCH (08:29)
[2021-04-26] MEDS: AMIODARONE 200 MG TABLET PO SCH (08:30)
[2021-04-26] MEDS: ASPIRIN CHEW 81 MG TABLET PO SCH (08:30)
[2021-04-26] MEDS: carvediloL 6.25 MG TABLET PO SCH (08:30)
[2021-04-26] MEDS: FUROSEMIDE 40 MG/4 ML VIAL IV SCH (08:30)
[2021-04-26] MEDS: INSULIN NPH/REGULAR 70/30 100 UNIT/ML SUBCUT SCH (08:34)
[2021-04-26] MEDS: metOLazone 2.5 MG TABLET PO SCH (08:34)
[2021-04-26] MEDS: INSULIN LISPRO 100 UNIT/ML SUBCUT SCH ×2 (08:34→12:08)
[2021-04-26] MEDS ORDERED: POTASSIUM CHLORIDE 20 MEQ TABLET PO SCH (09:00)
[2021-04-26 12:01] VITALS: BP 132/80
== END 2021-04-26 13:08 | disposition home or self-care (01) ==
LOC: N.ED 16:21 → INTOOBSV 20:39 → N.EDINP 20:39 → OBSVTOIN 20:39 → N.EDINP 23:12 → N.TELEN 23:15
PROVIDERS: ADMIT Internal Medicine Geriatric Medicine; ATTEND Internal Medicine Geriatric Medicine